=== PATIENT | female | born 2000 | race Two or more races ===

== ENCOUNTER 2022-06-17 13:10 | Emergency (ER) | payer SELFPAY ==
[~2022-06-17] VITALS: Ht 154.9 cm; Wt 65.8 kg
[2022-06-17] MEDS ORDERED: KETOROLAC TROMETHAMINE INJ 60 MG/2 ML VIAL IM ONE (13:30)
[2022-06-17] MEDS ORDERED: PENICILLIN G BENZATHINE 2.4 MMU/4 ML ML IM ONE ×2 (13:30→13:46)
[2022-06-17] MEDS ORDERED: DEXAMETHASONE SOD PHOSPHATE 10 MG/ML VIAL MC ONE (13:30)
[2022-06-17] MEDS ORDERED: DEXAMETHASONE SOD PHOSPHATE 10 MG/ML VIAL ONE (13:45)
[2022-06-17] MEDS ORDERED: KETOROLAC TROMETHAMINE INJ 30 MG/ML VIAL ONE (13:45)
[2022-06-17 14:04] VITALS: BP 132/81
== END 2022-06-17 14:20 | disposition home or self-care (01) ==
LOC: ER 13:20
DX: J02.9 Acute pharyngitis, unspecified (principal)
CPT/HCPCS: 99284; 96372 ×2; J0558; J1100; J1885